=== PATIENT | male | born 1960 | race Caucasian/White ===

== ENCOUNTER → 2017-05-26 | Outpatient (CLI) | payer MEDICARE ==
[~2017-05-26] MED LIST: CARI350T PO; MORP10DI10 PO; MORP60CA17 PO; OLME40TA12 PO; PREG100C PO; SITA100T PO
--- NOTE | 2017-05-26 14:01 | KCIC ---
EXAM: Lumbar spine, 3 views. HISTORY: Pain. COMPARISON: None. FINDINGS: Frontal, lateral and coned sacral views of the lumbar spine are obtained. There is lumbar levoscoliosis centered at L3. There is grade 1 anterolisthesis of L3 on L4, measuring 7 mm. There is degenerative endplate remodeling with anterior spurring at multiple levels. There is disc space narrowing at L3-L4. 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 There is a suspected related injury S1-S2 disc. There is facet arthropathy predominantly at the lower lumbar levels. IMPRESSION: 1. Multilevel degenerative changes of the lumbar spine, primarily at L3-L4. 2. Grade 1 anterolisthesis of L3 on L4 and levoscoliosis centered at L3. Electronically signed by: Brittni Chen MD (05/26/2017 1:57 PM) [facility]
== END | disposition home or self-care (01) ==
LOC: KCIC 12:41
PROVIDERS: ATTEND Family Medicine
DX: M43.16 Spondylolisthesis, lumbar region (principal)
CPT/HCPCS: 72100

== ENCOUNTER → 2017-07-18 | Outpatient (CLI) | payer MEDICARE | END | disposition home or self-care (01) | LOC: KCIC MRI 12:12 | DX: M54.16 Radiculopathy, lumbar region (principal); M48.061 Spinal stenosis, lumbar region without neurogenic claudication; M48.04 Spinal stenosis, thoracic region; M43.16 Spondylolisthesis, lumbar region | CPT/HCPCS: 72148 ==

== ENCOUNTER → 2017-08-02 | Outpatient (CLI) | payer MEDICARE | END | disposition home or self-care (01) | LOC: MAMMO 08:47 | DX: N63.10 Unspecified lump in the right breast, unspecified quadrant (principal) | CPT/HCPCS: 76641; 77066 ==

== ENCOUNTER → 2017-08-30 | Outpatient (CLI) | payer MEDICARE | END | disposition home or self-care (01) | LOC: KCIC 15:49 | DX: M43.16 Spondylolisthesis, lumbar region (principal); M47.896 Other spondylosis, lumbar region; M48.061 Spinal stenosis, lumbar region without neurogenic claudication | CPT/HCPCS: 72100 ==

== ENCOUNTER → 2017-09-05 | Outpatient (CLI) | payer MEDICARE ==
[2017-09-05 15:54] LABS: ADD MAN DIFF? NO
[2017-09-05 15:56] LABS: BASO # 0.1 x10^3/uL (0.0-0.2); BASO % 1 % (0-3); EOS # 0.2 x10^3/uL (0.0-0.7); EOS % 2 % (0-3); HEMATOCRIT 34.9 % (39.0-53.0); HEMOGLOBIN 11.8 g/dL (13.0-17.5); LYMPH # 1.3 x10^3/uL (1.0-4.8); LYMPH % 14 % (24-48); MEAN CORPUSCULAR HEMOGLOBIN 30 pg (25-35); MEAN CORPUSCULAR HGB CONC 34 g/dL (31-37); MEAN CORPUSCULAR VOLUME 90 fL (79-100); MONO # 0.9 x10^3/uL (0.0-1.1); MONO % 10 % (0-9); NEUT # 6.5 x10^3uL (1.8-7.7); NEUT % 73 % (31-73); PLATELET COUNT 262 x10^3/uL (140-400); RED CELL DISTRIBUTION WIDTH 13.7 % (11.5-14.5); WHITE BLOOD COUNT 8.9 x10^3/uL (4.0-11.0)
[2017-09-05 16:33] LABS: ALBUMIN/GLOBULIN RATIO 0.9 (1.0-1.7); ALK PHOS 85 U/L (46-116); ALT (SGPT) 47 U/L (16-63); ANION GAP 11 (6-14); AST (SGOT) 40 U/L (15-37); BLOOD UREA NITROGEN 10 mg/dL (8-26); BUN/CREATININE RATIO 11 (6-20); CALCIUM 8.4 mg/dL (8.5-10.1); CARBON DIOXIDE 26 mmol/L (21-32); CHLORIDE 99 mmol/L (98-107); CREATININE 0.9 mg/dL (0.7-1.3); GFR 87.6; GLUCOSE 135 mg/dL (70-99); POTASSIUM 5.1 mmol/L (3.5-5.1); SODIUM 136 mmol/L (136-145); TOTAL BILIRUBIN 0.2 mg/dL (0.2-1.0); TOTAL PROTEIN 8.5 g/dL (6.4-8.2)
[2017-09-06 00:14] LABS: MRSA BY PCR Negative (Negative)
[2017-09-06 01:11] LABS: HEMOGLOBIN A1C 5.8 % (4.8-5.6)
== END | disposition home or self-care (01) ==
LOC: SURGPAT 14:12
DX: Z01.818 Encounter for other preprocedural examination (principal); M48.061 Spinal stenosis, lumbar region without neurogenic claudication; R79.89 Other specified abnormal findings of blood chemistry
CPT/HCPCS: 36415; 80053; 83036; 85025; 87641; 93005

== ENCOUNTER → 2017-09-12 | Day surgery (SDC) | payer MEDICARE ==
[~2017-09-12] MED LIST changes: -CARI350T PO; +DESFLURANE > 120 MINUTES IH; +DEXAMETHASONE SOD PHOS 20 MG/5 ML VIAL.; +GLYCOPYRROLATE 1 MG/5 ML VIAL.; +HYDROmorphone 2 MG/ML VIAL IV; +LABETALOL 20 MG/4 ML DISP.SYRIN.; +LIDOCAINE 1% PF 2 ML VIAL. ID; +LIDOCAINE 1% PF 5 ML VIAL.; +LIDOCAINE 2% PF Vial for OR 5 ML VIAL.; +MIDAZOLAM HCL/PF 2 MG/2 ML VIAL.; +MINERAL OIL/PETROLATUM,WHITE OPHTH OINT 3.5GM TUBE.; -MORP10DI10 PO; -MORP60CA17 PO; +MORPHINE SULFATE 4 MG/ML DISP.SYRIN.; +NEOSTIGMINE 10 MG/10 ML VIAL.; -OLME40TA12 PO; +ONDANSETRON PF 4 MG/2 ML VIAL.; +ONDANSETRON PF 4 MG/2 ML VIAL. IV; +PHENYLEPHRINE 10 MG/ML VIAL.; -PREG100C PO; +PROCHLORPERAZINE 10 MG/2 ML VIAL. IV; +PROPOFOL 20 ML IV; +PROPOFOL 50 ML IV; +REMIFENTANIL 2 MG VIAL. IV; +ROCURONIUM 50 MG/5 ML VIAL.; -SITA100T PO; +ceFAZolin 2GM PREMIX 2 GM/50 ML BAG IV; +fentaNYL PF VIAL 100 MCG/2 ML VIAL; +fentaNYL PF VIAL 100 MCG/2 ML VIAL IV
[2017-09-12 07:33] LABS: POC GLUCOSE 121 mg/dL (70-99)
[2017-09-12] MEDS: IV RINGERS,LACTATED 1000ML 1,000 ML IV (07:37)
[2017-09-12] MEDS: GELATIN SPONGE SIZE 100. (09:46)
[2017-09-12] MEDS: BUPIVAC MPF-EPI 0.5%-1:200000 30 ML VIAL. INJ (09:46)
[2017-09-12] MEDS: KETOROLAC 60 MG/2 ML INJ FOR OR. (09:46)
[2017-09-12] MEDS: THROMBIN TOPICAL 20,000 UNIT SPRAY.SYRN KIT TP (09:46)
[2017-09-12] MEDS: BACITRACIN 50,000 UNIT in IV NORMAL SALINE 1000ML BAG 1,000 ML IRR (09:46)
[2017-09-12] MEDS: MORPHINE SULFATE 2 MG/ML DISP.SYRIN. IV ×2 (12:21→12:35)
[2017-09-12 12:33] LABS: POC GLUCOSE 179 mg/dL (70-99)
[2017-09-12] MEDS: LABETALOL 20 MG/4 ML DISP.SYRIN. IVP (12:40)
[2017-09-12] MEDS: fentaNYL PF VIAL 100 MCG/2 ML VIAL IV ×2 (13:45→14:09)
== END ==
LOC: SURG 06:42
DX: M43.16 Spondylolisthesis, lumbar region (principal); M71.38 Other bursal cyst, other site; E88.2 Lipomatosis, not elsewhere classified; M48.062 Spinal stenosis, lumbar region with neurogenic claudication; M54.16 Radiculopathy, lumbar region; M54.5 Low back pain; I10 Essential (primary) hypertension; M19.90 Unspecified osteoarthritis, unspecified site; M06.80 Other specified rheumatoid arthritis, unspecified site; E11.9 Type 2 diabetes mellitus without complications; Z98.890 Other specified postprocedural states; Z79.899 Other long term (current) drug therapy; Z79.82 Long term (current) use of aspirin; Z96.651 Presence of right artificial knee joint; Z79.84 Long term (current) use of oral hypoglycemic drugs
CPT/HCPCS: 63047; 76000; 82962; 88304; 88311; 97161-GP; J0690; J1100; J1885; J2250; J2270; J2405; J2704; J2710; J3010; J3490; J7030; J7120

== ENCOUNTER 2019-03-13 23:12 | Emergency (ER) | payer OTHER ==
[~2019-03-13] VITALS: Ht 172.7 cm; Wt 97.5 kg
[~2019-03-13 23:12] MED LIST changes: +ASPI325T11 PO; +CAND32TA19 PO; +CARI350T PO; -DESFLURANE > 120 MINUTES IH; -DEXAMETHASONE SOD PHOS 20 MG/5 ML VIAL.; +DOCU-109 PO; +FOLI1TAB16 PO; +GABA-689 PO; -GLYCOPYRROLATE 1 MG/5 ML VIAL.; -HYDROmorphone 2 MG/ML VIAL IV; -LABETALOL 20 MG/4 ML DISP.SYRIN.; +LEVO25TA4 PO; -LIDOCAINE 1% PF 2 ML VIAL. ID; -LIDOCAINE 1% PF 5 ML VIAL.; -LIDOCAINE 2% PF Vial for OR 5 ML VIAL.; +MELO15TA23 PO; +METF850T8 PO; +METO25TA4 PO; +METO50TA6 PO; -MIDAZOLAM HCL/PF 2 MG/2 ML VIAL.; -MINERAL OIL/PETROLATUM,WHITE OPHTH OINT 3.5GM TUBE.; +MORP10DI10 PO; +MORP60CA17 PO; +MORP60TA60 PO; -MORPHINE SULFATE 4 MG/ML DISP.SYRIN.; -NEOSTIGMINE 10 MG/10 ML VIAL.; +OLME40TA12 PO; -ONDANSETRON PF 4 MG/2 ML VIAL.; -ONDANSETRON PF 4 MG/2 ML VIAL. IV; -PHENYLEPHRINE 10 MG/ML VIAL.; +PRAV20TA2 PO; +PREG100C PO; -PROCHLORPERAZINE 10 MG/2 ML VIAL. IV; -PROPOFOL 20 ML IV; -PROPOFOL 50 ML IV; -REMIFENTANIL 2 MG VIAL. IV; -ROCURONIUM 50 MG/5 ML VIAL.; +SITA100T PO; -ceFAZolin 2GM PREMIX 2 GM/50 ML BAG IV; -fentaNYL PF VIAL 100 MCG/2 ML VIAL; -fentaNYL PF VIAL 100 MCG/2 ML VIAL IV
[2019-03-13 23:15] VITALS: BP 112/67
--- NOTE | 2019-03-14 00:24 | PHYS DOC ---
Past Medical History Past Medical History: A-Fib, Arthritis, Diabetes-Type II, Hypertension, Other Additional Past Medical Histor: chronic ankle pain, irregular heartbeat Past Surgical History: Knee Replacement, Other Additional Past Surgical Histo: R knee, L ankle,LEFT EYE FOR CATARACT, Alcohol Use: Heavy Drug Use: None Adult General Chief Complaint Chief Complaint: ANKLE PROBLEM HPI HPI Patient is a 59 year old male presents to the ER stating that he tripped over something around 10:00 PM and states he's now having right lower 70 pain. The patient states that he's been dealing with pain in that extremity for several months and is scheduled have a surgery on it with a [place] orthopedic doctor. Has taken morphine 60 mg extended release for his pain daily around 5:00 PM. Reports his pain is 3 out of 10 when he is sitting they're not putting weight on it. Review of Systems Review of Systems Constitutional: Denies fever or chills [] Eyes: Denies change in visual acuity, redness, or eye pain [] HENT: Denies nasal congestion or sore throat [] Respiratory: Denies cough or shortness of breath [] Cardiovascular: No additional information not addressed in HPI [] GI: Denies abdominal pain, nausea, vomiting, bloody stools or diarrhea [] : Denies dysuria or hematuria [] Musculoskeletal: Denies back pain or joint pain [] Integument: Denies rash or skin lesions [] Neurologic: Denies headache, focal weakness or sensory changes [] Endocrine: Denies polyuria or polydipsia [] All other systems were reviewed and found to be within normal limits, except as documented in this note. Allergies Allergies Allergies Coded Allergies Type Severity Reaction Last Updated Verified No Known Drug Allergies 06/22/13 No Physical Exam Physical Exam Constitutional: Well developed, well nourished, no acute distress, non-toxic appearance. [] HENT: Normocephalic, atraumatic, bilateral external ears normal, oropharynx moist, no oral exudates, nose normal. [] Eyes: PERRLA, EOMI, conjunctiva normal, no discharge. [] Neck: Normal range of motion, no tenderness, supple, no stridor. [] Skin: Warm, dry, no erythema, no rash. [] Back: No tenderness, no CVA tenderness. [] Extremities: Tenderness to R tib/fib, ankle, and foot. mild ankle edema. Neurologic: Alert and oriented X 3, normal motor function, normal sensory function, no focal deficits noted. [] Psychologic: Affect normal, judgement normal, mood normal. [] Current Patient Data Vital Signs Vital Signs Date Time Temp Pulse Resp B/P (MAP) Pulse Ox O2 Delivery O2 Flow Rate FiO2 03/13/19 23:15 97.5 85 16 112/67 (82) 95 Room Air 97.5 EKG EKG [] Radiology/Procedures Radiology/Procedures [][facility] [address] [place] [address] IMAGING REPORT Signed PATIENT: RAQUEL SHANKAR ACCOUNT: [id number] : 1960 LOCATION: ER AGE: 59 SEX: M EXAM STATUS: REG ER ORD. PHYSICIAN: RAQUEL TYSON APRN REASON: fall PROCEDURE: ANKLE RIGHT 3V Right tibia-fibula AP lateral x-rays. Right ankle x-rays 3 views. Right foot x-rays 3 views. HISTORY: Fall, no other clinical history was provided. Tibia-fibula findings: Total knee arthroplasty. No acute fracture or dislocation of the tibia and fibula. Arterial vascular calcifications. IMPRESSION: No acute osseous injury. Ankle findings: There is a well-defined ossicle inferior the lateral malleolus indicating an old soft tissue or ligamentous injury, there is no donor site from the lateral malleolus to suggest an avulsion fracture. No acute fracture of the ankle. There is abnormal varus deformity of the tibiotalar joint and slight lateral subluxation of the talus relative to the tibial plafond without full dislocation, associated with chondromalacia and osteoarthritis with marked joint space narrowing of the central joint and mild bony sclerosis and spurring of the talus. Spur the plantar calcaneus. Arthritic change of the midfoot noted. IMPRESSION: No fracture or dislocation. Arthrosis of the tibiotalar joint, associated with abnormal varus angulation and mild subluxation of the joint of indeterminate age, this could indicate chronic joint instability, versus acute subluxation from an acute ligamentous and joint capsule injury. Foot findings: Chronic ossicle and bone spur at the first tarsometatarsal joint. Hallux valgus deformity and osteoarthritis. Osteoarthritis at the tarsometatarsal joints. Spur the plantar calcaneus. IMPRESSION: No acute osseous injury. Electronically signed by: David Hitchcock MD (03/14/2019 12:42 AM) [facility] DICTATED and SIGNED BY: DAVID HITCHCOCK MD DATE: 03/14/19 0042 Course & Med Decision Making Course & Med Decision Making Pertinent Labs and Imaging studies reviewed. (See chart for details) Will get imaging. Imaging shows no acute injury. Will put in post op boot and have follow up with his orthopedic doctor. Dragon Disclaimer Dragon Disclaimer This electronic medical record was generated, in whole or in part, using a voice recognition dictation system. Departure Departure Impression: Primary Impression: Ankle pain Disposition: 01 HOME, SELF-CARE Condition: STABLE Referrals: RAQUEL MAJANO MD (PCP) Additional Instructions: Thank you for visiting [facility]. We appreciate you trusting us with your care. If any additional problems come up don't hesitate to return to visit us. Please follow up with your primary care provider so they can plan additional care if needed and know about the problem that you had. If symptoms w orsen come back to the Emergency Department. Any concerning symptoms that start such as chest pain, shortness of air, weakness or numbness on one side of the body, running high fevers or any other concerning symptoms return to the ER. Problem Qualifiers Primary Impression: Ankle pain Chronicity: acute Laterality: right Qualified Codes: M25.571 - Pain in right ankle and joints of right foot RAQUEL TYSON APRN Mar 14, 2019 00:24
--- NOTE | 2019-03-14 00:45 | RAD ---
Right tibia-fibula AP lateral x-rays. Right ankle x-rays 3 views. Right foot x-rays 3 views. HISTORY: Fall, no other clinical history was provided. Tibia-fibula findings: Total knee arthroplasty. No acute fracture or dislocation of the tibia and fibula. Arterial vascular calcifications. IMPRESSION: No acute osseous injury. Ankle findings: There is a well-defined ossicle inferior the lateral malleolus indicating an old soft tissue or ligamentous injury, there is no donor site from the lateral malleolus to suggest an avulsion fracture. No acute fracture of the ankle. There is abnormal varus deformity of the tibiotalar joint and slight lateral subluxation of the talus relative to the tibial plafond without full dislocation, associated with chondromalacia and osteoarthritis with marked joint space narrowing of the central joint and mild bony sclerosis and spurring of the talus. Spur the plantar calcaneus. Arthritic change of the midfoot noted. IMPRESSION: No fracture or dislocation. Arthrosis of the tibiotalar joint, associated with abnormal varus angulation and mild subluxation of the joint of indeterminate age, this could indicate chronic joint instability, versus acute subluxation from an acute ligamentous and joint capsule injury. Foot findings: Chronic ossicle and bone spur at the first tarsometatarsal joint. Hallux valgus deformity and osteoarthritis. Osteoarthritis at the tarsometatarsal joints. Spur the plantar calcaneus. IMPRESSION: No acute osseous injury. Electronically signed by: David Hitchcock MD (03/14/2019 12:42 AM) [facility]
== END 2019-03-14 01:02 | disposition home or self-care (01) ==
LOC: ER 23:12
DX: M25.571 Pain in right ankle and joints of right foot (principal); I48.91 Unspecified atrial fibrillation; M19.90 Unspecified osteoarthritis, unspecified site; E11.9 Type 2 diabetes mellitus without complications; I10 Essential (primary) hypertension; G89.29 Other chronic pain; Z96.651 Presence of right artificial knee joint; F10.20 Alcohol dependence, uncomplicated; Y90.9 Presence of alcohol in blood, level not specified
CPT/HCPCS: 29515; 73590; 73610; 73630; 99284

== ENCOUNTER 2019-09-07 22:44 | Emergency (ER) | payer MEDICARE ==
[~2019-09-07] VITALS: Ht 175.3 cm; Wt 95.4 kg
[~2019-09-07 22:44] MED LIST changes: +ALPR0.25 PO; +AMLO5TAB10 PO; +APIX2.5T PO; +DICL1KIT14 TP; +DOXY25TA16 PO; +FERR159T3 PO; +HYDR200T5 PO; +MELO15TA6 PO; +MULT-245 PO; +OXYC1TAB19 PO
--- NOTE | 2019-09-07 23:01 | PHYS DOC ---
Past Medical History Past Medical History: A-Fib, Arthritis, Diabetes-Type II, Hypertension, Other Additional Past Medical Histor: chronic ankle pain, irregular heartbeat, RA (RAQUEL TYSON APRN) Past Surgical History: Knee Replacement, Other Additional Past Surgical Histo: R knee, L ankle,LEFT EYE FOR CATARACT, ORIF right ankle (RAQUEL TYSON APRN) Smoking Status: Never Smoker Alcohol Use: Heavy Drug Use: None (RAQUEL TYSON APRN) Attending Signature I have participated in the care of this patient and I have reviewed and agree with all pertinent clinical information above including history, exam, and recommendations. (YURI VICENTE MD) Adult General Chief Complaint Chief Complaint: [facility]ENSION [facility] Patient is 59-year-old male that presents with palpitations that started earlier this afternoon. The patient states he took his blood pressure at home and it wa s 180/70. The patient blood pressure on arrival to the ER was 173/65. The patient reports his pain is 8 out of 10 in severity and sharp and body wide. The patient states he is a chronic pain patient and takes Percocet and morphine at home. The patient has a history of hypertension, A. fib, diabetes and is on Eliquis due to an ankle fusion. The patient was recently admitted to the hospital and worked up for chest pain and palpitations. He denies any additional symptoms. Complete ROS were reviewed and found to be within normal limits, except as documented in the HPI (RAQUEL TYSON APRN) Allergies Allergies Allergies Coded Allergies Type Severity Reaction Last Updated Verified No Known Drug Allergies 06/22/13 No (YURI VICENTE MD) Physical Exam Physical Exam Constitutional: Well developed, well nourished, no acute distress, non-toxic appearance. [] HENT: Normocephalic, atraumatic, bilateral external ears normal, oropharynx moist, no oral exudates, nose normal. [] Eyes: PERRLA, EOMI, conjunctiva normal, no discharge. [] Neck: Normal range of motion, no tenderness, supple, no stridor. [] Cardiovascular:Heart rate regular rhythm, no murmur [] Lungs & Thorax: Bilateral breath sounds clear to auscultation [] Skin: Warm, dry, no erythema, no rash. [] Neurologic: Alert and oriented X 3, normal motor function, normal sensory function, no focal deficits noted. [] Psychologic: Affect normal, judgement normal, mood normal. [] (RAQUEL TYSON APRN) Current Patient Data Vital Signs Vital Signs Date Time Temp Pulse Resp B/P (MAP) Pulse Ox O2 Delivery O2 Flow Rate FiO2 09/07/19 23:50 100 20 99 09/07/19 22:50 98.5 173/95 (121) Room Air 98.5 (YURI VICENTE MD) Lab Values Laboratory Tests Test 09/07/19 23:00 White Blood Count 10.9 x10^3/uL (4.0-11.0) Red Blood Count 3.95 x10^6/uL (4.30-5.70) L Hemoglobin 11.8 g/dL (13.0-17.5) L Hematocrit 34.1 % (39.0-53.0) L Mean Corpuscular Volume 87 fL (79-100) Mean Corpuscular Hemoglobin 30 pg (25-35) Mean Corpuscular Hemoglobin Concent 35 g/dL (31-37) Red Cell Distribution Width 14.2 % (11.5-14.5) Platelet Count 435 x10^3/uL (140-400) H Neutrophils (%) (Auto) 78 % (31-73) H Lymphocytes (%) (Auto) 11 % (24-48) L Monocytes (%) (Auto) 7 % (0-9) Eosinophils (%) (Auto) 3 % (0-3) Basophils (%) (Auto) 1 % (0-3) Neutrophils # (Auto) 8.5 x10^3/uL (1.8-7.7) H Lymphocytes # (Auto) 1.2 x10^3/uL (1.0-4.8) Monocytes # (Auto) 0.8 x10^3/uL (0.0-1.1) Eosinophils # (Auto) 0.3 x10^3/uL (0.0-0.7) Basophils # (Auto) 0.1 x10^3/uL (0.0-0.2) Sodium Level 127 mmol/L (136-145) L Potassium Level 3.6 mmol/L (3.5-5.1) Chloride Level 89 mmol/L (98-107) L Carbon Dioxide Level 26 mmol/L (21-32) Anion Gap 12 (6-14) Blood Urea Nitrogen 7 mg/dL (8-26) L Creatinine 0.9 mg/dL (0.7-1.3) Estimated GFR (Cockcroft-Gault) 87.0 BUN/Creatinine Ratio 8 (6-20) Glucose Level 162 mg/dL (70-99) H Calcium Level 9.2 mg/dL (8.5-10.1) Total Bilirubin 0.3 mg/dL (0.2-1.0) Aspartate Amino Transferase (AST) 26 U/L (15-37) Alanine Aminotransferase (ALT) 28 U/L (16-63) Alkaline Phosphatase 109 U/L (46-116) Troponin I Quantitative < 0.017 ng/mL (0.000-0.055) Total Protein 8.7 g/dL (6.4-8.2) H Albumin 4.0 g/dL (3.4-5.0) Albumin/Globulin Ratio 0.9 (1.0-1.7) L Thyroid Stimulating Hormone (TSH) 3.261 uIU/mL (0.358-3.74) Laboratory Tests 09/07/19 23:00 Laboratory Tests 09/07/19 23:00 (YURI VICENTE MD) Lab Values Laboratory Tests Test 09/07/19 23:00 White Blood Count 10.9 x10^3/uL (4.0-11.0) Red Blood Count 3.95 x10^6/uL (4.30-5.70) L Hemoglobin 11.8 g/dL (13.0-17.5) L Hematocrit 34.1 % (39.0-53.0) L Mean Corpuscular Volume 87 fL (79-100) Mean Corpuscular Hemoglobin 30 pg (25-35) Mean Corpuscular Hemoglobin Concent 35 g/dL (31-37) Red Cell Distribution Width 14.2 % (11.5-14.5) Platelet Count 435 x10^3/uL (140-400) H Neutrophils (%) (Auto) 78 % (31-73) H Lymphocytes (%) (Auto) 11 % (24-48) L Monocytes (%) (Auto) 7 % (0-9) Eosinophils (%) (Auto) 3 % (0-3) Basophils (%) (Auto) 1 % (0-3) Neutrophils # (Auto) 8.5 x10^3/uL (1.8-7.7) H Lymphocytes # (Auto) 1.2 x10^3/uL (1.0-4.8) Monocytes # (Auto) 0.8 x10^3/uL (0.0-1.1) Eosinophils # (Auto) 0.3 x10^3/uL (0.0-0.7) Basophils # (Auto) 0.1 x10^3/uL (0.0-0.2) Sodium Level 127 mmol/L (136-145) L Potassium Level 3.6 mmol/L (3.5-5.1) Chloride Level 89 mmol/L (98-107) L Carbon Dioxide Level 26 mmol/L (21-32) Anion Gap 12 (6-14) Blood Urea Nitrogen 7 mg/dL (8-26) L Creatinine 0.9 mg/dL (0.7-1.3) Estimated GFR (Cockcroft-Gault) 87.0 BUN/Creatinine Ratio 8 (6-20) Glucose Level 162 mg/dL (70-99) H Calcium Level 9.2 mg/dL (8.5-10.1) Total Bilirubin 0.3 mg/dL (0.2-1.0) Aspartate Amino Transferase (AST) 26 U/L (15-37) Alanine Aminotransferase (ALT) 28 U/L (16-63) Alkaline Phosphatase 109 U/L (46-116) Troponin I Quantitative < 0.017 ng/mL (0.000-0.055) Total Protein 8.7 g/dL (6.4-8.2) H Albumin 4.0 g/dL (3.4-5.0) Albumin/Globulin Ratio 0.9 (1.0-1.7) L Laboratory Tests 09/07/19 23:00 Laboratory Tests 09/07/19 23:00 (RAQUEL TYSON APRN) EKG EKG EKG interpreted by Dr. Vicente Sinus with rate of 99. (RAQUEL TYSON APRN) Radiology/Procedures Radiology/Procedures [] (RAQUEL TYSON APRN) Course & Med Decision Making Course & Med Decision Making Pertinent Labs and Imaging studies reviewed. (See chart for details) We will get labs, chest x-ray, EKG. labs are unremarkable for acute changes with exception of a sodium level of 127. When the patient was discharged on the the sodium level was 123 so this appears to be at baseline for the patient. Patient was recently mated on August 16 and had a negative work-up. The patient was discharged home. The patient is already on Eliquis and beta- blockers. (RAQUEL TYSON APRN) Dragon Disclaimer Dragon Disclaimer This electronic medical record was generated, in whole or in part, using a voice recognition dictation system. (RAQUEL TYSON APRN) Departure Departure Impression: Primary Impression: Palpitations Disposition: HOME, SELF-CARE Condition: STABLE Referrals: RAQUEL MAJANO MD (PCP) JORGE MATSON MD Patient Instructions: Palpitations Additional Instructions: Thank you for visiting [facility]. We appreciate you trusting us with your care. If any additional problems come up don't hesitate to return to visit us. Please follow up with your primary care provider so they can plan additional care if needed and know about the problem that you had. If symptoms worsen come back to the Emergency Department. Any concerning symptoms that start such as chest pain, shortness of air, weakness or numbness on one side of the body, running high fevers or any other concerning symptoms return to the ER. Please call make an appointment outpatient with your primary care doctor and with cardiology. RAQUEL TYSON APRN Sep 07, 2019 23:01 YURI VICENTE MD Sep 08, 2019 21:39
[2019-09-07 23:14] LABS: BASO # 0.1 x10^3/uL (0.0-0.2); BASO % 1 % (0-3); EOS # 0.3 x10^3/uL (0.0-0.7); EOS % 3 % (0-3); HEMATOCRIT 34.1 % (39.0-53.0); HEMOGLOBIN 11.8 g/dL (13.0-17.5); LYMPH # 1.2 x10^3/uL (1.0-4.8); LYMPH % 11 % (24-48); MEAN CORPUSCULAR HEMOGLOBIN 30 pg (25-35); MEAN CORPUSCULAR HGB CONC 35 g/dL (31-37); MEAN CORPUSCULAR VOLUME 87 fL (79-100); MONO # 0.8 x10^3/uL (0.0-1.1); MONO % 7 % (0-9); NEUT # 8.5 x10^3/uL (1.8-7.7); NEUT % 78 % (31-73); PLATELET COUNT 435 x10^3/uL (140-400); RED BLOOD COUNT 3.95 x10^6/uL (4.30-5.70); RED CELL DISTRIBUTION WIDTH 14.2 % (11.5-14.5); WHITE BLOOD COUNT 10.9 x10^3/uL (4.0-11.0)
[2019-09-07 23:26] LABS: CALCIUM 9.2 mg/dL (8.5-10.1); CREATININE 0.9 mg/dL (0.7-1.3); POTASSIUM 3.6 mmol/L (3.5-5.1)
[2019-09-07 23:31] LABS: ALBUMIN/GLOBULIN RATIO 0.9 (1.0-1.7); TOTAL BILIRUBIN 0.3 mg/dL (0.2-1.0); TOTAL PROTEIN 8.7 g/dL (6.4-8.2)
--- NOTE | 2019-09-07 23:34 | RAD ---
PA and lateral chest. HISTORY: Palpitations, hypertension PA and lateral views of the chest were compared with a study from November 2018. Lungs are clear. Heart is normal in size. There is no effusion. IMPRESSION: 1. No acute chest disease. Electronically signed by: Moses Centeno MD (09/07/2019 11:32 PM) [id number]
[2019-09-07 23:50] VITALS: BP 159/75
--- NOTE | 2019-09-08 21:14 | EKG ---
[facility] [address] [place] [address] Test Date: 2019-09-07 Test Time: 23:10:04 Pat Name: RAQUEL VONNIE Department: Room: Gender: M St[employer] Sizer: : 1960 Requested By: RAQUEL TYSON Order Number: [id number] Reading MD: Measurements Intervals Bryant Rate: 99 P: 35 VA: 140 QRS: 23 QRSD: 92 T: 24 QT: 362 QTc: 470 Interpretive Statements SINUS RHYTHM NORMAL ECG No previous ECG available for comparison
== END 2019-09-08 00:07 | disposition home or self-care (01) ==
LOC: ER 22:44
DX: R00.2 Palpitations (principal); G89.29 Other chronic pain; I48.91 Unspecified atrial fibrillation; E11.9 Type 2 diabetes mellitus without complications; I10 Essential (primary) hypertension; F10.20 Alcohol dependence, uncomplicated; Y90.9 Presence of alcohol in blood, level not specified
CPT/HCPCS: 36415; 71046; 80053; 84443; 84484; 85025; 93005; 99285-25

== ENCOUNTER → 2019-12-21 | Outpatient (CLI) | payer MEDICARE ==
[~2019-12-21] MED LIST changes: +REGADENOSON 0.4 MG/5 ML DISP.SYRIN. IV ONE
--- NOTE | 2019-12-21 14:42 | RAD ---
MR#: [id number] Date of Study: 12/21/2019 Ordering Physician: JORGE MATSON, Referring Physician: ADIN ROCA Tech: RT Brit (R) (N) APPROVED REPORT Test Type: Pharmacological Stress Nurse/Tech: Mandy Goldstein RN Test Indications: [id number] Cardiac History: Hypertension, on ASA Medications: See Electronic Medical Record Medical History: See Electronic Medical Record Resting ECG: SR w/ tall T wave Resting Heart Rate: 80 bpm Resting Blood Pressure: 146/89mmHg Pretest Chest Pain: No chest pain Nurse/Tech Notes S1S2, Clear LS Consent: The procedure was explained to the patient in lay terms. Informed consent was witnessed. Naif eout was entered into [employer]. History and Stress Test performed by Mandy Goldstein RN Pharm. Details Pharmacologic stress testing was performed using 0.4mg per 5ml of regadenoson given intravenously ove r 7-10 seconds. Stress Symptoms Syncope, Flushing w/ sweating. All symptoms are gone after 1:30 sec POST EXERCISE Reason for Termination: Infusion complete Max HR: 109 bpm Max Blood Pressure: 173/99mmHg Chest Pain: No. Arrhythmia: Yes. PVCs ST Change: No. INTERPRETATION Stress EKG Conclusion: The baseline EKG shows a sinus rhythm with a prolonged QT interval. The stress EKG shows no significant changes from baseline. No EKG evidence of stress-induced ischemia. Imaging Protocol IMAGE PROTOCOL: Rest Tc-99m/stress Tc-99m 1 day Rest: Stress: Viability: Radiopharm.Tc99m QgpmwichtAp25p Sestamibi Lrqw30qPf 32.3mCi Duration 13min. 13min. Img Date 12/21/2019 12/21/2019 Inj-Img Vygk08mmg. 60min. Rest Admin Site:IV - Left AntecubitalAdministrator:RT Brit (R)(N) Stress Admin Site: IV - Left AntecubitalAdministrator: RT Jesusita (R)(N) STRESS DATA End Diast. Vol.84.0mlAv. Heart Oheg395.0bpm End Syst. Vol.41.0mlCO Index BSA0.0L/min Myocardial Igqw208.0gEject. Goaqswks03.0% Stress Rates Pk. Fill Rate4.39EDV/secLVtime Pk. Fill 119.43msec Pk. Empty Rate4.24ESV/secLVtime Pk. Lstpy879.78msec / Pk. Fill1.61EDV/sec Stress Scores Regional WT3.00Summed WT32.00 Regional WM0.00Summed WM9.00 LV Perfusion The stress scans show no significant defects. The rest scans show no significant defects. Nuclear imaging shows no reversible ischemia or infarct. Wall Motion Left ventricular systolic function is mildly decreased with an ejection fraction of 46% and mild dist al inferior apical hypokinesis. LV Perf. Quant 17 Seg. SSS0.00 17 Seg. SRS0.00 17 Seg. SDS0.00 Stress Defect Extent (% LAD)0.00Rest Defect Extent (% LAD)0.00Rev. Defect Extent (% LAD)0.00 Stress Defect Extent (% LCX) 0.00Rest Defect Extent (% LCX)0.00Rev. Defect Extent (% LCX)0.00 Stress Defect Extent (% RCA)0.00Rest Defect Extent (% RCA)0.00Rev. Defect Extent (% RCA)0.00 Stress Defect Extent (% HERB)0.00Rest Defect Extent (% HERB)0.00Rev. Defect Extent (% HERB)0.00 Conclusion 1. No EKG evidence of stress-induced ischemia. 2. Nuclear imaging shows no reversible ischemia or infarct. 3. Mildly decreased ejection fraction of 46% with mild distal inferior apical hypokinesis. 4. Moderately low risk nuclear stress test with no evidence of reversible ischemia or infarct but a d ecreased ejection fraction at 46%. Signed by : Jorge Matson MD Electronically Approved : 12/21/2019 14:42:20
== END ==
LOC: NM 07:47
PROVIDERS: ATTEND Internal Medicine Cardiovascular Disease
DX: Z01.818 Encounter for other preprocedural examination (principal); R07.9 Chest pain, unspecified
CPT/HCPCS: 78452; 93017; A9500; J2785

== ENCOUNTER → 2020-04-10 | Outpatient (CLI) | payer MEDICARE ==
[~2020-04-10] MED LIST changes: +AMLO-186 PO; -AMLO5TAB10 PO; -REGADENOSON 0.4 MG/5 ML DISP.SYRIN. IV ONE
--- NOTE | 2020-04-10 16:17 | KCIC ---
MRI Lumbar Spine without contrast History: Low back pain, pain from knees down Technique: Multiplanar, multi sequential noncontrast MR imaging was performed of the lumbar spine. Comparison: July 18, 2017 Findings: There is again grade 1 anterior spondylolisthesis at L3-4. 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 There is again advanced L3-4 degenerative disc disease although progressed in the interval, increased endplate irregularity and degenerative endplate change and mild amorphous endplate edema at this level. There is no fluid in the intervertebral disc spaces. There is negligible posterior subluxation L4 relative to L5 and L1 relative to L2. There is again moderate narrowing of the L1-L2 intervertebral disc space, mild disc desiccation L2-3, L4-5, and L5-S1. Conus terminates at L1-2. There is nonspecific edema of the posterior subcutaneous fat of the lower back. T12-L1: Spinal canal and neural foramina are adequate. L1-L2: There is again minimal disc osteophyte complex and bulge. There is mild facet degenerative change and prominence of posterior epidural fat centrally. There is very mild narrowing of the far left lateral recess. There is mild narrowing of the left neural foramen, right neural foramen adequate. L2-L3: There is minimal disc osteophyte complex. There are posterior and anterior annular tears. There is mild buckling of the ligamentum flavum and facet degenerative change. There is mild right lateral recess stenosis. Neural foramina are not significantly narrowed, minimal disc osteophyte complex inferiorly. L3-L4: There is right laminectomy defect. There is facet hypertrophic change. There is partial uncovering of the posterior aspect of the disc due to spondylolisthesis as well as with superimposed disc osteophyte complex and bulge. There is again severe bilateral neural foramina compromise with impingement of the exiting L3 nerve roots bilaterally. There is interval decreased spinal stenosis, residual overall moderate spinal stenosis including narrowing of the far lateral recesses bilaterally. L4-L5: There is disc osteophyte complex indenting the ventral thecal sac greater in the left lateral recess as seen previously. There is mild facet degenerative change, fluid in the facet articulations bilaterally. There is minimal buckling of the ligamentum flavum. There is again mild narrowing of the far left lateral recess. There is mild to moderate narrowing of the left neural foramen by facet and disc osteophyte complex which is near the undersurface of the exiting left L4 nerve root in the distal neural foramen and proximal extraforaminal region. There is minimal narrowing of the right neural foramen primarily from inferiorly by disc osteophyte complex. L5-S1: There is minimal disc osteophyte complex, near descending left S1 nerve root in the left lateral recess as seen previously, spinal canal not significantly narrowed. Right neural foramen is adequate. Disc osteophyte complex contributes to moderate to severe narrowing greater distally of the left neural foramen with contact undersurface exiting left L5 nerve root. Impression: 1. There is again grade 1 anterior spondylolisthesis L3-4, bilateral L3 spondylolysis. There has been interval progression of severe L3-4 degenerative disc disease, mild endplate edema at this level likely reactive/degenerative in etiology. There is decreased spinal stenosis at L3-4, residual overall moderate spinal stenosis at this level. There is again severe bilateral L3-4 neural foramina compromise with impingement of the exiting L3 nerve roots bilaterally. 2. There is other neural foramina compromise most notable on the left at L5-S1 with contact exiting left L5 nerve root, lesser degree of narrowing on the left at L4-5. 3. There is other mild lateral recess stenosis as described. Electronically signed by: Paul Myles MD (04/10/2020 4:14 PM) [facility]
== END ==
LOC: KCIC MRI 14:48
PROVIDERS: ATTEND Family Medicine
DX: M47.26 Other spondylosis with radiculopathy, lumbar region (principal); M43.16 Spondylolisthesis, lumbar region; M51.16 Intervertebral disc disorders with radiculopathy, lumbar region; M48.061 Spinal stenosis, lumbar region without neurogenic claudication; M25.78 Osteophyte, vertebrae
CPT/HCPCS: 72148

== ENCOUNTER → 2020-04-29 | Outpatient (CLI) | payer MEDICARE ==
--- NOTE | 2020-04-29 12:02 | KCIC ---
EXAM: Lumbar spine, flexion and extension. HISTORY: Pain. COMPARISON: MRI dated 04/10/2020. FINDINGS: Lateral neutral, flexion and extension views of the lumbar spine are obtained. There is grade 1 anterolisthesis of L3 on L4 which increases with flexion. There is severe degenerative endplate remodeling with disc space narrowing and osteophytosis level. There are pars defects at this level. There is minimal retrolisthesis of L1 on L2 which does not change between flexion and extension. There is facet arthropathy predominantly at the lower lumbar levels. There are bridging and partially bridging anterior osteophytes at the lower thoracic levels. IMPRESSION: 1. Grade 1 anterolisthesis which increases with flexion at L3-L4. There are associated pars defects and advanced degenerative changes at this level. 2. Degenerative change throughout the remainder of the lumbar spine and lower thoracic spine, described above. Electronically signed by: Brittni Chen MD (04/29/2020 11:59 AM) [id number]
== END ==
LOC: KCIC 11:23
PROVIDERS: ATTEND Neurological Surgery
DX: M47.816 Spondylosis without myelopathy or radiculopathy, lumbar region (principal); M43.16 Spondylolisthesis, lumbar region
CPT/HCPCS: 72100

== ENCOUNTER → 2020-06-02 | Outpatient (CLI) | payer MEDICARE ==
[~2020-06-02] MED LIST changes: +ALPR0.5T6 PO; +ASPI-886 PO; +DIPH25CA58 PO; +HYDR25TA PO; +HYDR30CR33 RC; +OXYC5TAB2 PO; +PANT40TA77 PO; +VITA1TAB19 PO
[2020-06-02 11:19] LABS: BASO % 0 % (0-3); EOS # 0.2 x10^3/uL (0.0-0.7); EOS % 3 % (0-3); HEMATOCRIT 34.9 % (39.0-53.0); HEMOGLOBIN 11.9 g/dL (13.0-17.5); LYMPH # 0.5 x10^3/uL (1.0-4.8); LYMPH % 6 % (24-48); MEAN CORPUSCULAR HEMOGLOBIN 31 pg (25-35); MEAN CORPUSCULAR HGB CONC 34 g/dL (31-37); MEAN CORPUSCULAR VOLUME 91 fL (79-100); MONO # 0.5 x10^3/uL (0.0-1.1); MONO % 6 % (0-9); NEUT # 6.8 x10^3/uL (1.8-7.7); NEUT % 85 % (31-73); PLATELET COUNT 284 x10^3/uL (140-400); RED BLOOD COUNT 3.85 x10^6/uL (4.30-5.70); RED CELL DISTRIBUTION WIDTH 13.4 % (11.5-14.5)
[2020-06-02 11:29] LABS: PROTHROMBIN TIME PATIENT 13.7 SEC (11.7-14.0)
[2020-06-02 11:40] LABS: ALBUMIN 4.1 g/dL (3.4-5.0); ALBUMIN/GLOBULIN RATIO 0.9 (1.0-1.7); CREATININE 0.8 mg/dL (0.7-1.3); GFR 99.3; POTASSIUM 4.6 mmol/L (3.5-5.1); TOTAL BILIRUBIN 0.3 mg/dL (0.2-1.0); TOTAL PROTEIN 8.5 g/dL (6.4-8.2)
== END ==
LOC: SURGPAT 10:10
PROVIDERS: ATTEND Neurological Surgery
DX: Z01.812 Encounter for preprocedural laboratory examination (principal); M43.16 Spondylolisthesis, lumbar region; M54.16 Radiculopathy, lumbar region; M48.062 Spinal stenosis, lumbar region with neurogenic claudication; Z20.828 Contact with and (suspected) exposure to other viral communicable diseases
CPT/HCPCS: 80053; 85025; 85610; 85730; 87641; U0003

== ENCOUNTER 2020-06-05 06:07 | Inpatient (IN) | payer MEDICARE ==
--- NOTE | 2020-06-04 17:18 | HP ---
ADMIT DATE: 06/26/2020 PREOPERATIVE HISTORY AND PHYSICAL HISTORY OF PRESENT ILLNESS: The patient is a pleasant 60-year-old who is having difficulty with low back pain. He feels that his legs are weak. He did undergo lumbar surgery at L3-L4 in 2018, he did well from that. His current problem began in the summer and has slowly worsened. He rates his pain as a 3/10 currently, but it can reach an 8/10 at its worse. He has constant back pain that increases with standing and walking. Sitting helps him. He takes morphine and oxycodone as well as meloxicam for his primary care physician. He ambulates with a cane. PAST MEDICAL HISTORY: Arthritis, artificial right knee, hypertension, rheumatoid arthritis, diabetes, osteoarthritis, hyponatremia. PAST SURGICAL HISTORY: Knee replacement in 2009 and ankle fusion x 2, L3-L4 laminectomy in 08/2017, a left knee replacement in 2019, a right ankle fusion in 2019. FAMILY HISTORY: Cancer, diabetes, hypertension. SOCIAL HISTORY: He is retired. . Exercises daily. Drinks 12 beers per day. ALLERGIES: DICLOFENAC, HYDROXYCHLOROQUINE, TIZANIDINE. CURRENT MEDICATIONS: Neurontin, pravastatin, meloxicam, metformin, Morphine, iron, glucosamine, Atacand, metoprolol, hydralazine, methotrexate, Percocet, Xanax, Atarax EQ, pantoprazole, baby aspirin. REVIEW OF SYSTEMS: A 12-point review of systems was obtained and is noncontributory except for that mentioned above. PHYSICAL EXAMINATION: NEUROSURGERY EXAMINATION: GENERAL APPEARANCE: Alert, pleasant, no acute distress. HEAD: Normocephalic and atraumatic. SKIN: Warm and dry. Well-healed lumbar incision. MUSCULOSKELETAL: Lumbar paraspinal muscle bulk is normal, restricted range of motion of the lumbar spine, [id number] tenderness of the lower lumbar spine with palpation, normal range of motion of the lower extremities bilaterally. EXTREMITIES: No clubbing, cyanosis, or edema. NEUROLOGIC: Alert and oriented x 3. Recent and remote memory normal. Strength 5/5 in bilateral lower extremities. Sensory was intact to light touch in bilateral lower extremities. Reflexes are present and symmetric in the lower extremities bilaterally. Negative straight leg raising bilaterally. Ambulates with a cane. IMAGING: I reviewed a lumbar MRI scan. On that study, there are postoperative changes noted. There is spondylolisthesis at L3-L4, bilateral L3 spondylosis. There is decreased spinal stenosis at L3-L4 with residual moderate spinal stenosis. There is severe bilateral L3-L4 neural foraminal narrowing. ASSESSMENT/ PLAN: At this point, I feel the patient would benefit from a lumbar laminectomy at L3-L4 with instrumentation, posterior lateral fusion and interbody fusion at L3-L4. I did speak with him about this including the technique and the postoperative course. He understands. He would like to proceed. We will make the arrangements. ANNAMARIE LORD MD DR: MARCIO/denisse JOB#: [id number] / [id number] VINNY
[~2020-06-05 06:07] MED LIST changes: +BACITRACIN 50,000 UNIT in IV NORMAL SALINE 1000ML BAG 1,000 ML IRR ONE
[2020-06-05 06:56] VITALS: BP 146/77
[2020-06-05] MEDS ORDERED: PROCHLORPERAZINE 10 MG/2 ML VIAL. IV PRN (07:00)
[2020-06-05] MEDS ORDERED: fentaNYL PF VIAL 100 MCG/2 ML VIAL IV PRN ×2 (07:00)
[2020-06-05] MEDS ORDERED: IV RINGERS,LACTATED 1000ML 1,000 ML IV SCH (07:00)
[2020-06-05] MEDS ORDERED: LIDOCAINE 1% PF 2 ML VIAL. ID PRN (07:00)
[2020-06-05] MEDS ORDERED: HYDROmorphone 2 MG/ML VIAL IV PRN (07:00)
[2020-06-05] MEDS ORDERED: ONDANSETRON PF 4 MG/2 ML VIAL. IV PRN (07:00)
[2020-06-05] MEDS ORDERED: MORPHINE SULFATE 2 MG/ML VIAL. IV PRN (07:00)
[2020-06-05] MEDS ORDERED: THROMBIN TOPICAL 20,000 UNIT SPRAY.SYRN KIT TP ONE (07:06)
[2020-06-05] MEDS ORDERED: GELATIN SPONGE SIZE 100. ONE (07:06)
[2020-06-05] MEDS ORDERED: KETOROLAC 60 MG/2 ML VIAL. ONE (07:06)
[2020-06-05] MEDS ORDERED: LIDOCAINE 1%/EPI 1:100,000 20 ML VIAL. ONE (07:06)
[2020-06-05] MEDS ORDERED: ceFAZolin 2GM PREMIX 2 GM/50 ML BAG IV ONE (07:10)
[2020-06-05] MEDS ORDERED: PROPOFOL 0 ML IV ONE (07:47)
[2020-06-05] MEDS ORDERED: fentaNYL PF VIAL 100 MCG/2 ML VIAL ONE (07:47)
[2020-06-05] MEDS ORDERED: PROPOFOL 10 MG/ML (20ML) VIAL. IV ONE (07:47)
[2020-06-05] MEDS ORDERED: LIDOCAINE 2% PF 5 ML VIAL. ONE (07:47)
[2020-06-05] MEDS ORDERED: REMIFENTANIL 2 MG VIAL. IV ONE (07:48)
[2020-06-05] MEDS ORDERED: ROCURONIUM 50 MG/5 ML VIAL. ONE (07:48)
[2020-06-05] MEDS ORDERED: SUCCINYLCHOLINE 200 MG/10 ML VIAL. ONE (07:48)
--- NOTE | 2020-06-05 08:34 | RAD ---
CT lumbar spine without contrast HISTORY: Low back pain. COMPARISON: MRI lumbar spine April 10, 2020. FINDINGS: There is transitional lumbosacral anatomy with partial lumbarization of the S1 vertebra, this is consistent with the numbering of the vertebra on the prior MRI study. Slight levoconvex lumbar scoliosis. Lumbar vertebral height intact. There is grade 1 anterolisthesis of L3 on L4 by 4 mm associated with bilateral L3 spondylolysis defects. There is a right L3 laminotomy. No acute fracture. Aortoiliac artery calcified plaque. Mild focal fatty atrophy of the right psoas muscle adjacent of the upper lumbar spine likely due to chronic denervation injury. Lumbar disc disease and arthritic changes described below. L1-L2: Vacuum disc and disc height loss, disc bulge, facet hypertrophy, with mild spinal canal and neural foraminal stenoses similar to prior imaging. L2-L3: Posterior disc height loss, moderate disc bulge, facet hypertrophy. Mild neural foraminal stenoses. Mild-moderate spinal canal stenosis is stable. L3-L4: Marked disc height loss, vacuum disc, uncovering of the disc with a large disc bulge, and lateral disc osteophytes, facet spurring, and hypertrophic ossification at the L3 spondylolysis defects all of which encroaches the foramina and contributes to severe foraminal stenoses and probable impingement of the exiting L3 nerves which is stable. There is severe spinal canal stenosis also grossly stable. L4-L5: Posterior disc height loss, mild-moderate disc bulge, mild posterior lateral vertebral endplate spurring, facet hypertrophy and spurring, may contribute to mild spinal canal stenosis and mild-moderate neural foraminal stenoses. L5-S1: Posterior disc height loss, mild/moderate disc bulge, lateral disc osteophyte, facet spurring, with mild right and moderate left neural foraminal stenoses, and probable mild spinal canal stenosis, grossly stable. IMPRESSION: 1. No acute osseous injury of the lumbar spine. 2. Bilateral L3 spondylolysis and grade 1 anterolisthesis of L3 on L4. Lumbar disc disease and arthritic change with bone spurring contributing to spinal canal and neural foraminal stenoses. The greatest degree of stenotic disease is severe at L3-L4. These findings are globally stable to prior MR imaging. See above. Exposure: One or more of the following individualized dose reduction techniques were utilized for this examination: 1. Automated exposure control 2. Adjustment of the mA and/or kV according to patient size 3. Use of iterative reconstruction technique Electronically signed by: David Hitchcock MD (06/05/2020 8:31 AM) [facility]
[2020-06-05 09:26] LABS: CALCIUM 7.5 mg/dL (8.5-10.1); CREATININE 0.7 mg/dL (0.7-1.3); GFR 115.8; POTASSIUM 4.4 mmol/L (3.5-5.1)
--- NOTE | 2020-06-05 09:56 | NUR ---
PT HERE IN [facility] FOR LUMBAR LAMINECTOMY WITH DR LORD. SODIUM 123, AND RE-DRAWN PER DR SWARTZ AND DR LORD ORDERS. RE-DRAWN SODIUM 126. DR LORD AND SHERIDAN NOTIFIED AND ORDERS TO CANCEL SURGERY. OFFICE TO RESCHEDULE. PT AWARE AND STATES UNDERSTANDING. DR LORD AND SHERIDAN IN ROOM INFORMING PT. IV DC'D AND PT DC'D AMB WITH TO HOME
== END 2020-06-05 10:07 | disposition home or self-care (01) | DRG 552 ==
LOC: OPSVCIP 06:07
PROVIDERS: ADMIT Neurological Surgery; ATTEND Neurological Surgery
DX: M48.062 Spinal stenosis, lumbar region with neurogenic claudication (principal); M54.16 Radiculopathy, lumbar region; M43.16 Spondylolisthesis, lumbar region; M06.9 Rheumatoid arthritis, unspecified; I10 Essential (primary) hypertension; M19.90 Unspecified osteoarthritis, unspecified site; E11.9 Type 2 diabetes mellitus without complications; Z82.49 Family history of ischemic heart disease and other diseases of the circulatory system; Z83.3 Family history of diabetes mellitus; Z96.652 Presence of left artificial knee joint; Z98.1 Arthrodesis status; Z88.8 Allergy status to other drugs, medicaments and biological substances
CPT/HCPCS: 36415; 72131; 80048; 84295; 86850; 86900; 86901; J0330; J0690; J1885; J2704; J3010; J3490; J7030; J7120

== ENCOUNTER → 2020-06-23 | Outpatient (CLI) | payer MEDICARE ==
[2020-06-05 06:56] VITALS: BP 146/77
[~2020-06-23] MED LIST changes: -BACITRACIN 50,000 UNIT in IV NORMAL SALINE 1000ML BAG 1,000 ML IRR ONE; +SODI650T PO
== END ==
LOC: LAB 13:00
PROVIDERS: ATTEND Neurological Surgery
DX: Z01.812 Encounter for preprocedural laboratory examination (principal); M54.5 Low back pain; M48.062 Spinal stenosis, lumbar region with neurogenic claudication; M43.16 Spondylolisthesis, lumbar region; M54.16 Radiculopathy, lumbar region; Z20.828 Contact with and (suspected) exposure to other viral communicable diseases
CPT/HCPCS: U0003

== ENCOUNTER → 2020-06-25 | Outpatient (CLI) | payer MEDICARE ==
[2020-06-05 06:56] VITALS: BP 146/77
[2020-06-25 12:38] LABS: ALBUMIN 3.8 g/dL (3.4-5.0); CALCIUM 6.8 mg/dL (8.5-10.1); CREATININE 0.9 mg/dL (0.7-1.3); GFR 86.7; POTASSIUM 4.6 mmol/L (3.5-5.1); TOTAL BILIRUBIN 0.3 mg/dL (0.2-1.0); TOTAL PROTEIN 7.7 g/dL (6.4-8.2)
--- NOTE | 2020-06-25 13:05 | NUR ---
CALLED DR MAJANO'S OFFICE TO REPORT CRITICAL SODIUM LEVEL. MESSAGE SENT TO DR MAJANO'S CDL A DRIVER. ALSO, SPOKE WITH TAMIA @ DR LORD'S OFFICE TO NOTIFY OF THE ABOVE. SURGERY TO BE POSTPONED FROM 06/26.
--- NOTE | 2020-06-25 13:40 | NUR ---
Patient take to ER per wheelchair for evaluation. Report given to triage nurse in ER.
== END ==
LOC: LAB 11:41
PROVIDERS: ATTEND Neurological Surgery
DX: Z01.812 Encounter for preprocedural laboratory examination (principal); M48.062 Spinal stenosis, lumbar region with neurogenic claudication; M43.16 Spondylolisthesis, lumbar region; M54.16 Radiculopathy, lumbar region
CPT/HCPCS: 36415; 80053